=== PATIENT | female | born 1995 | race Caucasian/White ===

== ENCOUNTER 2018-06-14 23:24 | Emergency (ER) | payer OTHER ==
--- NOTE | 2018-06-15 00:26 | ER Document Report ---
ED Medical Screen (RME) - General Chief Complaint: Breathing Difficulty Stated Complaint: DIFFICULTY BREATHING Time Seen by Provider: 06/15/18 00:17 Notes: Patient is a 23-year-old female who is who developed midsternal chest pain radiating to her back with accompanying shortness of breath this evening. Patient is complaining of soreness in her right lower extremity as well as some pain in her left upper extremity. She has no history of hypertension, HYPERcholesterolemia, diabetes or family history. I have treated and performed a rapid initial assessment of this patient. A comprehensive ED assessment and evaluation of the patient, analysis of test results and completion of medical decision making process will be conducted by additional ED providers. PHYSICAL EXAMINATION: GENERAL: Well-appearing, well-nourished and in no acute distress. A&Ox4. Answers questions appropriately. LUNGS: Breath sounds clear to auscultation bilaterally and equal. No wheezes rales or rhonchi. HEART: Regular rate and rhythm without murmurs, rubs, gallops. ABDOMEN: Gravid, nontender Extremities: No cyanosis, clubbing, or edema b/l. NEUROLOGICAL: Normal speech, normal gait. PSYCH: Normal mood, normal affect. TRAVEL OUTSIDE OF THE [place] IN LAST 30 DAYS: No Past Medical History - General Information source: Patient - Social History Chew tobacco use (# tins/day): No Frequency of alcohol use: None Drug Abuse: None Family history: Other - Patient does not know any information about her family. Renal/ Medical History: Denies: Hx Peritoneal Dialysis Past Surgical History: Reports: Hx Cholecystectomy Physical Exam - Vital signs Vitals: Temp Pulse Resp BP Pulse Ox 97.5 F 67 18 134/76 H 100 06/14/18 23:25 06/14/18 23:25 06/14/18 23:25 06/14/18 23:25 06/14/18 23:25 Course - Vital Signs Vital signs: Temp Pulse Resp BP Pulse Ox 97.5 F 67 18 134/76 H 100 06/14/18 23:25 06/14/18 23:25 06/14/18 23:25 06/14/18 23:25 06/14/18 23:25
[2018-06-15 00:59] LABS: ABSOLUTE EOSINOPHILS # (AUTO) 0.1 10^3/uL (0.0-0.6); ABSOLUTE MONOCYTES (AUTO) 0.8 10^3/uL (0.1-1.4); ABSOLUTE NEUT (AUTO) 12.2 10^3/uL (1.7-8.2); BASOPHILS % (AUTO) 0.3 % (0-2); EOSINOPHILS % (AUTO) 0.6 % (0-6); HEMATOCRIT 35.6 % (36.0-47.0); HEMOGLOBIN 12.1 g/dL (12.0-15.5); LYMPHOCYTES % (AUTO) 13.3 % (13-45); MEAN CORPUSCULAR HEMOGLOBIN 30.7 pg (27.0-33.4); MEAN CORPUSCULAR VOLUME 90 fl (80-97); MONOCYTES % (AUTO) 5.4 % (3-13); PLATELET COUNT 273 10^3/uL (150-450); RED BLOOD COUNT 3.95 10^6/uL (3.72-5.28); RED CELL DISTRIBUTION WIDTH 13.4 % (11.5-14.0); SEGMENTED NEUTROPHILS % (AUTO) 80.4 % (42-78); TOTAL CELLS COUNTED % (AUTO) 100 %; WHITE BLOOD COUNT 15.2 10^3/uL (4.0-10.5)
[2018-06-15 01:02] LABS: APPEARANCE,URINE CLEAR; BILIRUBIN,URINE NEGATIVE (NEGATIVE); COLOR,URINE STRAW; GLUCOSE, URINE NEGATIVE (NEGATIVE); KETONES,URINE NEGATIVE (NEGATIVE); LEUKOCYTE ESTERASE,URINE NEGATIVE (NEGATIVE); NITRITE,URINE NEGATIVE (NEGATIVE); PROTEIN,URINE NEGATIVE (NEGATIVE); UROBILINOGEN,URINE NEGATIVE mg/dL (<2.0)
[2018-06-15 01:11] LABS: ALANINE AMINOTRANSFERASE 24 U/L (9-52); ALBUMIN 3.8 g/dL (3.5-5.0); ALKALINE PHOSPHATASE 114 U/L (38-126); ANION GAP 8 (5-19); ASPARTATE AMINO TRANSFERASE 23 U/L (14-36); BILIRUBIN,DIRECT 0.1 mg/dL (0.0-0.4); BILIRUBIN,TOTAL 0.3 mg/dL (0.2-1.3); BLOOD UREA NITROGEN 7 mg/dL (7-20); CARBON DIOXIDE 26 mmol/L (22-30); CHLORIDE 104 mmol/L (98-107); GLUCOSE 91 mg/dL (75-110); POTASSIUM 3.9 mmol/L (3.6-5.0); SODIUM 137.6 mmol/L (137-145); TOTAL PROTEIN 6.5 g/dL (6.3-8.2)
[2018-06-15] MEDS ORDERED: MAG HYDROX/AL HYDROX/SIMETH SUSP 30 ML UDCUP PO ONE (01:39)
--- NOTE | 2018-06-15 01:39 | ER Document Report ---
ED General <BELTRAN,BRIAN - Last Filed: 06/15/18 03:38> - General Mode of Arrival: Ambulatory Information source: Patient TRAVEL OUTSIDE OF THE [place] IN LAST 30 DAYS: No - HPI Patient complains to provider of: Chest burning and hard time breathing Onset: Just prior to arrival Onset/Duration: Sudden Quality of pain: Burning Severity: Mild Pain Level: 5 Associated symptoms: Hurts to breath, Shortness of breath Exacerbated by: Denies Relieved by: Denies Similar symptoms previously: No Recently seen / treated by doctor: No <TAMIR CASTILLO - Last Filed: 06/15/18 07:13> <MELCHORBLADE Vaishali - Last Filed: 06/15/18 08:31> - General Chief Complaint: Breathing Difficulty Stated Complaint: DIFFICULTY BREATHING Time Seen by Provider: 06/15/18 00:17 Primary Care Provider: JODY,LEISA [Primary Care Provider] - Follow up as needed - HPI Context: 22 weeks and 4 days (TAMIR CASTILLO) Notes: Patient is a 23-year-old female who is at present 22 weeks and 4 days who comes in tonight with 5 out of 5 burning midsternal chest pain. She is also complaining of pain between her shoulder blades. Feels like it is hard to get a good breath. Complaining of some discomfort down her left arm. Symptoms started around 5 PM and include lightheadedness and dizziness. Patient does not have any known medical problems. (TAMIR CASTILLO) Past Medical History - General Information source: Patient - Social History Smoking Status: Never Smoker Chew tobacco use (# tins/day): No Frequency of alcohol use: None Drug Abuse: None Family History: Reviewed & Not Pertinent Patient has suicidal ideation: No Patient has homicidal ideation: No Renal/ Medical History: Denies: Hx Peritoneal Dialysis Past Surgical History: Reports: Hx Cholecystectomy <TAMIR CASTILLO - Last Filed: 06/15/18 07:13> Review of Systems <TAMIR CASTILLO - Last Filed: 06/15/18 07:13> - Review of Systems Notes: Constitutional: No fevers. No chills. EENT: No eye redness. No eye pain. No ear pain. No sore throat. Cardiovascular: + chest pain. No palpitations. Respiratory: Shortness of breath Gastrointestinal: No abdominal pain. No nausea, vomiting, or diarrhea. Genitourinary: Atraumatic. No lesions. No pain. No discharge. Musculoskeletal: Atraumatic. No swelling. No deformities. Skin: No rash or lesions. Lymphatic: No swollen lymph nodes. Neurologic: No headache. No syncope. Psychiatric: No suicidal or homicidal ideation. (TAMIR CASTILLO) Physical Exam <TAMIR CASTILLO - Last Filed: 06/15/18 07:13> - Vital signs Vitals: Temp Pulse Resp BP Pulse Ox 97.5 F 67 18 134/76 H 100 06/14/18 23:25 06/14/18 23:25 06/14/18 23:25 06/14/18 23:25 06/14/18 23:25 - Notes Notes: General: Well-developed, well-nourished. In no acute distress. Non-toxic appeari ng. Cardiac: Well-perfused. Regular rate and rhythm. No murmurs, rubs, or gallops. Pulmonary: No respiratory distress. No cyanosis. Bilateral lung fiels are clear to auscultation. Abdominal: Non-distended. Non-rigid. Bowels sounds are present in all four quadrants. No guarding or rebound. HEENT: Head is atraumatic. Conjunctivae not reddened. No tearing. PERRL. EOMI. Orbits atraumatic. No periorbital swelling or erythema. Oropharynx is without erythema, swelling, or exudates. Neck: Supple. No adenopathy. No meningismus. Dermatologic: Warm with good turgor. No rash. Atraumatic. Chest: Atraumatic. No chest wall tenderness to palpation. Musculoskeletal: Moves all extremities well. No range of motion deficits. no muscular or joint tenderness. No paraspinal muscle tenderness. no midline spinal tenderness or step-off. Genitourinary: Examination deferred Neurologic: No gross neurologic deficits. Psychiatric: Normal mood. (TAMIR CASTILLO) Course - Laboratory Result Diagrams: 06/15/18 00:35 06/15/18 00:35 <SURAJ BELTRAN - Last Filed: 06/15/18 03:38> - Laboratory Result Diagrams: 06/15/18 00:35 06/15/18 00:35 <TAMIR CASTILLO - Last Filed: 06/15/18 07:13> - Laboratory Result Diagrams: 06/15/18 00:35 06/15/18 00:35 <BLADE ROCHE - Last Filed: 06/15/18 08:31> - Re-evaluation Re-evalutation: 06/15/18 03:38 Advised patient will. She looks very comfortable on exam. Concerning thing is that she does have some soreness in her chest is worsening takes a deep breath. Did start with burning pain. I suspect this most likely is not going to be PE however she says that she does have some pain in her calf is little bit worse than the right. It is hard for me to completely rule out PE without doing further testing. Her vital signs are normal. I therefore feel that is appro priate for the d-dimer. If this is negative then I think we can stop any further workup as she looks very well clinically and has normal vital signs. The d-dimer is positive then will go forward with CT of the chest. I explained the plan to the patient. Explained to her the risk of radiation to her breast tissue. I talked about the fetus as well. She is understanding of this and is agreeable to go forward with the plan. (SURAJ BELTRAN) 06/15/18 07:13 Unfortunately, the CT angiogram of the chest was not conclusive. We will hydrate the patient and consider repeating the study after the radiologist arrives at 8:00 this morning. We discussed this with the patient. Clinically she is actually feeling considerably better than she did when she first came in. She understands what we have to do. (TAMIR CASTILLO) 06/15/18 07:11 I received bedside report from ALMA Conklin. I have assumed care of the patient. 06/15/18 08:[address] Matias, the radiologist on-call and she states that there is no PE noted on the patient's CTA. I have discussed the results with the patient. She will take Tylenol as needed for her pain. Strict follow-up precautions were given. Verbal discharge instructions were given to the patient. They verbalized understanding. They are stable for discharge. (BLADE ROCHE) - Vital Signs Vital signs: Temp Pulse Resp BP Pulse Ox 97.5 F 67 24 H 109/71 100 06/14/18 23:25 06/14/18 23:25 06/15/18 07:01 06/15/18 07:00 06/15/18 07:01 - Laboratory Laboratory results interpreted by me: 06/15/18 06/15/18 00:35 00:35 WBC 15.2 H Hct 35.6 L Seg Neutrophils % 80.4 H Absolute Neutrophils 12.2 H D-Dimer 0.67 H Discharge <SURAJ BELTRAN - Last Filed: 06/15/18 03:38> <TAMIR CASTILLO - Last Filed: 06/15/18 07:13> <BLADE ROCHE - Last Filed: 06/15/18 08:31> - Discharge Clinical Impression: Chest heaviness, Difficulty breathing Condition: Stable Disposition: HOME, SELF-CARE Additional Instructions: You were seen today in the emergency department for heaviness in her chest and having a hard time breathing. Your CT of your chest is normal. You can take Tylenol 650 mg every 6 hours as needed for your pain. If you develop chest pain again, have difficulty breathing, or have any symptoms that are worrisome to you, please return to the emergency department. Referrals: LOCALMD,NO [Primary Care Provider] - Follow up as needed
[2018-06-15] MEDS ORDERED: METOCLOPRAMIDE HCL ORAL SOLN 10 MG/10 ML UDCUP PO ONE (01:40)
--- NOTE | 2018-06-15 06:41 | RADIOLOGY REPORT (SQ) ---
EXAM: CT chest angiography with intravenous contrast CLINICAL DATA: 23-year-old female with chest pain and dyspnea, 22 weeks . TECHNICAL DATA: Following the administration of intravenous contrast, multiple high-resolution axial images of the chest were performed followed by sagittal and coronal reconstructed images. Coronal oblique MIP images were also performed. The CT study is performed according to ALARA (as low as reasonably achievable) or ALARA/IMAGE GENTLY, with automatic adjustment of mA and/or kV according to patient size. Performed on: 06/15/2018 at 6:05 AM COMPARISONS: None FINDINGS: There is suboptimal contrast opacification of the pulmonary arteries on this examination. There is greater opacification of the thoracic aorta as compared to the pulmonary artery trunk and main pulmonary arteries. The pulmonary artery trunk and main pulmonary arteries enhance homogeneously without evidence of intra-arterial filling defects. However, evaluation of the segmental and subsegmental pulmonary artery branches for pulmonary emboli is limited on this examination. There is no evidence of thoracic aortic aneurysm or aortic dissection. The lungs are well expanded and are clear. There is no evidence of a pneumothorax. There are no pleural effusions. The heart is normal in size. There is no pericardial effusion. There is no evidence of reflux of contrast into the hepatic veins to suggest right heart strain. There is no evidence of hilar, mediastinal or axillary lymphadenopathy. No acute osseous abnormality is identified. The visualized upper abdominal structures are unremarkable. IMPRESSION: 1. Suboptimal contrast opacification of the pulmonary arteries on this examination as described above. Evaluation of the segmental and subsegmental pulmonary artery branches for pulmonary emboli is limited on this study. 2. No evidence of acute intrathoracic disease. 3. No evidence of thoracic aortic aneurysm or aortic dissection.
[2018-06-15] MEDS ORDERED: RINGERS SOLUTION,LACTATED 1,000 ML IV ONE (07:12)
--- NOTE | 2018-06-15 07:44 | EKG REPORT ---
SEVERITY:- NORMAL ECG - SINUS RHYTHM : Confirmed by: Roberto Arce MD 15-Jun-2018 07:43:46
[2018-06-15 08:44] VITALS: BP 110/76
== END 2018-06-15 08:44 | disposition home or self-care (01) ==
LOC: ER 23:24
DX: O26.892 Other specified pregnancy related conditions, second trimester (principal); R07.9 Chest pain, unspecified; R06.02 Shortness of breath; M54.6 Pain in thoracic spine; M79.602 Pain in left arm; R42 Dizziness and giddiness; Z3A.22 22 weeks gestation of pregnancy
CPT/HCPCS: 93005; 99285; 96360; 36415; 85025; 80053; 81001; 84484; 85379; 71275; 93010; J7120